=== PATIENT | female | born 1970 | race Caucasian/White ===

== ENCOUNTER → 2023-02-16 | Outpatient (CLI) | payer OTHER, SELFPAY ==
--- NOTE | 2023-02-16 17:34 | CT_ITS ---
EXAM: CT ABDOMEN AND PELVIS WITHOUT INTRAVENOUS CONTRAST CLINICAL INDICATION: Calculus of kidney, abdominal pain TECHNIQUE: Helically acquired images were obtained of the abdomen and pelvis without intravenous contrast. This CT exam was performed using one or more of the following dose reduction techniques: automated exposure control, adjustment of the mA and/or kV according to patient size, and/or use of iterative reconstruction technique. COMPARISON: No relevant prior studies available. FINDINGS: LOWER THORAX: No significant abnormality. Lung bases are clear. No cardiomegaly. No significant pericardial effusion. ABDOMEN: LIVER: No significant abnormality. Homogeneous. GALLBLADDER AND BILE DUCTS: No significant abnormality. No calcified gallstones. No gallbladder distention or wall edema. No intra- or extrahepatic biliary ductal dilation. PANCREAS: No significant abnormality. No focal cystic mass. SPLEEN: No significant abnormality. Normal size without focal cystic or solid mass. ADRENALS: No significant abnormality. No nodules. KIDNEYS AND URETERS: Mild to moderate left-sided hydroureteronephrosis due to a 3 mm left distal ureteral stone. Normal renal size and position. No right-sided urolithiasis or hydronephrosis. STOMACH AND BOWEL: No significant abnormality. No stomach or bowel distention. No focal inflammatory change. PELVIS: APPENDIX: No evidence of acute appendicitis. BLADDER: No significant abnormality. REPRODUCTIVE: An IUD is present. ABDOMEN and PELVIS: INTRAPERITONEAL SPACE: No significant abnormality. No ascites or other fluid collection. No free air. BONES/JOINTS: Guys left curvature of the lumbar spine with associated degenerative changes. No suspicious lytic or blastic abnormality. SOFT TISSUES: No significant abnormality. No discrete abdominal or pelvic wall hernia. VASCULATURE: Atherosclerosis of the aorta and its branch vessels. Abdominal aorta is non-dilated. LYMPH NODES: No significant abnormality. No enlarged lymph nodes. CT/Abdomen/Pelvis without Cont IMPRESSION: Mild to moderate left-sided hydroureteronephrosis due to a 3 mm left distal ureteral stone. Electronically Signed: Tristin Aguilera DO at 22:57 EDT ,
== END | disposition home or self-care (01) ==
LOC: CT 17:30
PROVIDERS: PCP General Practice; Referring Provider Urology; Visit Provider Urology
DX: N20.0 Calculus of kidney (principal); R10.9 Unspecified abdominal pain
CPT/HCPCS: 74176

== ENCOUNTER 2023-03-08 10:57 | Day surgery (SDC) | payer OTHER, SELFPAY ==
[2023-03-08 11:25] LABS: Internal QC Validated? YES +Cl - CLEAR BKGD; Pregnancy, Urine Negative Negative; Record Kit Lot#,Urine Preg 667200
[2023-03-08 11:33] VITALS: BP 107/72; PULSE 85; RESP 18; TEMP 37.1; O2SAT 99; BMI 26.6
[2023-03-08] MEDS: Lactated Ringers 1,000 ML 15 ML IV (11:40)
[2023-03-08 12:00] LABS: Bedside Glucose 218 mg/dL (74-106)
--- NOTE | 2023-03-08 12:25 | CALC_PTH ---
PATIENT: ROOSEVELT WASHINGTON LOC: [facility] [place] U#:[id number] AGE/SX: 52/F ROOM: RE03/08/[address]: Dr. Ary Castro MD : 1970 BED: DIS: 03/08/2023 SPEC #: [id number] RECD: 03/08/23 16:21 STATUS: DHAVAL LUJAN #: [id number] JORDAN: 03/08/23 12:[address]: Ary Castro DEPT: SURGICAL PATHOLOGY RECD BY: Agustin Bonilla ENTERED: 03/09/23 07:30 SP TYPE: Calculi OTHR DR: Dr. Kimberly Joyce MD Tissues: CALCULI Procedures: Surgery Specimen Level I HEADER OPERATION: Cysto, ureteroscopy, laser lithotripsy, left-sided stent placement PRE-OP DIAGNOSIS: Left ureteral stone TISSUE SUBMITTED: Left ureteral stone GROSS DIAGNOSIS A fragment of stone, clinically left ureteral stone (gross only). MARY:dennis 03/12/2023 COMMENT The calculus is submitted in its entirety for chemical stone analysis. The results from this study will be reported separately. GROSS DESCRIPTION Received without fixative labeled with the patient's name and designated left ureteral stone fragment. The specimen consists of a fragment of beckford-brown stone measuring 0.2 x 0.2 x 0.1 cm. The entire specimen is submitted for stone analysis. / MARY:dennis 03/09/2023 CPT: 59258
--- NOTE | 2023-03-08 14:00 | HP.PCM_ITS ---
[facility] - General General Date of Service: 03/08/23 Chief Complaint: Left ureteral stone HPI Narrative ROOSEVELT WASHINGTON, is a 52 F who presents for surgical intervention for a left ureteral calculus that has not passed. Informed consent has been obtained. [facility] Medical History (Updated 03/08/23 @ 14:[address] Ary Castro MD) Anxiety Asthma Diabetes Dietary restriction High cholesterol History of ganglion cyst Kidney stones Migraine headache Non-smoker Ureteral calculus Home Medications albuterol sulfate 2.5 mg/3 mL (0.083 %) solution for nebulization 2.5 mg inhalation Q8H PRN shortness of breath or wheezing 03/07/23 [History Last Taken 03/08/23] atorvastatin 20 mg tablet 20 mg PO QHS 03/07/23 [History Last Taken Unknown] beclomethasone dipropionate 80 mcg/actuation HFA breath activated aerosol (Qvar RediHaler) 2 inh inhalation BID 03/07/23 [History Last Taken Unknown] cephalexin 500 mg capsule 500 mg PO TID 03/07/23 [History Last Taken Unknown] fluticasone propionate 50 mcg/actuation nasal spray,suspension (Allergy Relief (fluticasone)) 1 spray intranasal DAILY PRN allergy symptoms 03/07/23 [History Last Taken Unknown] galcanezumab-gnlm 120 mg/mL subcutaneous pen injector (Emgality Pen) 120 mg subcut QMONTH 03/07/23 [History Last Taken Unknown] levocetirizine 5 mg tablet 5 mg PO DAILY 03/07/23 [History Last Taken Unknown] loperamide 2 mg capsule (Anti-Diarrheal (loperamide)) 1 mg PO Q6H PRN loose stool 03/07/23 [History Last Taken Unknown] metformin 500 mg tablet,extended release 24 hr 1,000 mg PO BID 03/07/23 [History Last Taken Unknown] oxycodone-acetaminophen 5 mg-325 mg tablet 1 tab PO Q8H PRN pain 03/07/23 [History Last Taken Unknown] potassium citrate 10 mEq (1,080 mg) tablet,extended release 10 meq PO BID 03/07/23 [History Last Taken Unknown] tamsulosin 0.4 mg capsule 0.4 mg PO DAILY 03/07/23 [History Last Taken Unknown] venlafaxine 150 mg capsule,extended release 24 hr 150 mg PO DAILY 03/07/23 [History Last Taken Unknown] Allergy/AdvReac Type Severity Reaction Status Date / Time Fish Containing Products Allergy Severe Vomiting Verified 03/07/23 09:47 meperidine [From Demerol] AdvReac Severe Vomiting Verified 03/07/23 09:46 Surgical History (Updated 03/07/23 @ 10:06 by Jennifer Caicedo) History of cystoscopy History of reduction surgery of left breast Hx of foot surgery Social History Smoking Status: Never smoker ROS ROS Narrative she reports recently having some pain on both sides. we discussed retrograde pyelograms for evaluation bilaterally. Constitutional Constitutional: Denies chills, fever(s), poor appetite or weakness Eyes Eyes: Reports systems reviewed and no addt'l complaints, except as documented ENT HEENT: Reports systems reviewed and no addt'l complaints, except as documented Cardiovascular Cardiovascular: Reports systems reviewed and no addt'l complaints, except as documented and abdominal pain; Denies chest pain, diaphoresis or dyspnea Respiratory/Chest Respiratory/Chest: Denies chest congestion, cough or dyspnea Gastrointestinal Gastrointestinal: Reports abdominal pain and nausea Genitourinary Genitourinary: Reports flank pain and nocturia; Denies burning urination or dysuria Musculoskeletal Musculoskeletal: Reports back pain Integumentary Integumentary: Reports systems reviewed and no addt'l complaints, except as documented Neurologic Neurologic: Reports systems reviewed and no addt'l complaints, except as documented Psychiatric Psychiatric: Reports systems reviewed and no addt'l complaints, except as documented Endocrine Endocrinology: Reports systems reviewed and no addt'l complaints, except as documented Hematologic/Lymphatic Hematologic/Lymphatic: Reports systems reviewed and no addt'l complaints, except as documented Allergic/Immunologic Allergic/Immunologic: Reports systems reviewed and no addt'l complaints, except as documented Vital Signs Vital Signs Vital Signs: 03/08/23 11:33 03/08/23 11:33 Temperature 98.8 F Temperature Source Temporal Pulse Rate 85 Respiratory Rate 18 Respiratory Pattern Normal Blood Pressure 107/72 Blood Pressure Mean 83 Blood Pressure Source Monitor Blood Pressure Position Semi-Fowlers Blood Pressure Location Right Arm Pulse Ox 99 Oxygen Delivery Method Room Air Weight Weight: 66.134 kg Body Mass Index (BMI) 26.6 Physical Exam Const alert, oriented x3 and no apparent distress General Appearance: cooperative, well kempt and well developed HEENT normocephalic and head/scalp atraumatic Eyes General Eye: normal appearance of both eyes Neck supple General: normal visual inspection and trachea midline Lymph Lymphatic: no lymphedema noted Chest inspection of chest normal Chest: symmetrical chest wall rise Resp normal respiratory effort, normal air movement and no retractions Cardio regular rate and regular rhythm GI soft to palpation, non-tender and non-distended Bladder / Kidney Exam: CVA tenderness left Back/Spine General Back: CVA tenderness left Extremity normal to inspection Skin no rashes or lesions noted, no wounds, skin turgor normal, no jaundice, no petechiae and no mottling Neuro oriented x3, CN's II-XII intact bilaterally and moves all extremities Psych mental status grossly normal, thought process normal and cooperative Results Lab / Micro Data Labs: Laboratory Results - last 24 hr 03/08/23 11:10: Urine Test Negative 03/08/23 11:38: POC Glucose 218 H Assessment & Plan Assessment/Plan (1) Ureteral calculus: PLAN: Plan cystoscopy with bilateral retrograde pyelograms, left ureteroscopy with possible laser lithotripsy, stone basket extraction and left ureteral stent insertion. Informed consent was obtained with discussion risks of anesthesia, bleeding, infection and injury. She understands and agrees to proceed.
[2023-03-08] MEDS: Cefazolin 2 GM in 0.9% Normal Saline (100mL Bag) 100 ML IV (14:18)
--- NOTE | 2023-03-08 15:01 | DCINST_ITS ---
Discharge Instructions Diet Discharge Diet: No restrictions Activity Discharge Activity: Return to Normal Activity Dressing / Incision Call your doctor if you observe: Fever of 101 or Higher, Inability to urinate and Inability to have a bowel movement Follow Up Care Please Follow Up With: Ary Castro MD When: The office will call to make arrangements for cystoscopy and stent removal next week Test Results: Test results from this visit will be discussed in further detail at your follow- up appointment, if applicable. Discharge Plan Admission Attending Provider: Ary Castro Primary Care Provider: Kimberly Joyce Discharge Orders/Prescriptions Prescriptions: New oxycodone-acetaminophen [Percocet] 5-325 mg tablet 1 tab PO Q8H PRN (Reason: pain) 3 Days Qty: 10 0RF Continued metformin 500 mg tablet extended release 24 hr 1,000 mg PO BID atorvastatin 20 mg tablet 20 mg PO QHS venlafaxine 150 mg capsule,extended release 24hr 150 mg PO DAILY levocetirizine 5 mg tablet 5 mg PO DAILY Qvar RediHaler 80 mcg/actuation HFA aerosol breath activated 2 inh INHALATION BID Emgality Pen 120 mg/mL pen injector 120 mg SUBCUT QMONTH fluticasone propionate [Allergy Relief (fluticasone)] 50 mcg/actuation spray,suspension 1 spray intranasal DAILY PRN (Reason: allergy symptoms) Rx Instructions: administer into each nostril tamsulosin 0.4 mg capsule 0.4 mg PO DAILY Patient Comments: TAKE 1 CAPSULE BY MOUTH DAILY FOR 14 DAYS oxycodone-acetaminophen 5-325 mg tablet 1 tab PO Q8H PRN (Reason: pain) Patient Comments: TAKE 1 TABLET BY MOUTH EVERY 8 HOURS NEEDED loperamide [Anti-Diarrheal (loperamide)] 2 mg capsule 1 mg PO Q6H PRN (Reason: loose stool) cephalexin 500 mg capsule 500 mg PO TID albuterol sulfate 2.5 mg /3 mL (0.083 %) solution for nebulization 2.5 mg inhalation Q8H PRN (Reason: shortness of breath or wheezing) Patient Comments: USE 1 UNIT DOSE EVERY 4-6 HOURS NEEDED potassium citrate 10 mEq (1,080 mg) tablet extended release 10 meq PO BID Patient Comments: TAKE 2 TABLETS BY MOUTH THREE TIMES DAILY Referrals / Follow Up: Kimberly Joyce MD [Primary Care Provider] - Disposition Disposition (needs filled in before D/C Order can be placed): Home, Self Care
[2023-03-08 15:03] VITALS: BP 107/72; BP 119/73; PULSE 72; RESP 16; TEMP 36.4; O2SAT 97
--- NOTE | 2023-03-08 15:03 | PCM.OPRPT ---
Problems Associated Problem List Diagnoses (1) Ureteral calculus: Report of Operation Date of Procedure: 03/08/23 Pre-Operative Diagnosis: Left ureteral calculus, bilateral flank pain Post-Operative Diagnosis: Same Surgery/Procedure Performed:: Cystoscopy, bilateral retrograde pyelograms, left ureteroscopy, holmium laser lithotripsy, stone basket extraction, left ureteral stent insertion Surgeon: Ary Castro Type of Anesthesia: General Specimen's removed: Left ureteral calculus Description of Procedure: Patient is a 52-year-old female here with a left distal ureteral calculus for surgical intervention, informed consent was obtained. The patient was taken to the operating room and placed on the operating room table. Anesthesia monitored the head, neck, airway, IV access and vital signs throughout the case. Once anesthesia was abruptly ministered the patient was placed into dorsolithotomy position was prepped and draped in usual sterile fashion. The cystoscope was inserted through the urethra under direct visualization into the urinary bladder. The urethral and bladder mucosa were visualized in their entirety without any evidence of abnormality. The right ureteral orifice was identified and gently cannulated with an 8 Kittitian cone-tip catheter and contrast was injected in retrograde fashion under fluoroscopic visualization. There were no filling defects or abnormalities identified including any evidence of hydroureteronephrosis. At this time attention was turned towards the left side where a retrograde pyelogram once again was performed and obstruction was met in the distal third of the ureter. At this point and 0.035 Glidewire was passed through the left ureteral orifice into the renal pelvis with obvious palpation of the stone in the distal ureter. The semirigid ureteroscope was placed alongside the wire and the stone was identified. It was broken into multiple small pieces that were removed using a basket. Using the indwelling safety wire, a 4.5 Kittitian 24 cm JJ stent was inserted with good positioning in the renal pelvis as well as the urinary bladder. At this time the patient's bladder was emptied and the case was terminated. Stone fragments were sent for evaluation. The patient was awakened and taken to the recovery room in good condition. There were no complications during this procedure. Grafts/Implants Used: 4.5 Kittitian by 24 cm JJ stent Complications None Admit VTE Documentation VTE Present on Admission: Yes VTE Mechan Device Prophylaxis: SCD's VTE Pharm Prophylaxis ordered?: No Reason prophylaxis not ordered:: Treatment Not Indicated
[2023-03-08 15:15] VITALS: BP 107/72; BP 113/70; PULSE 71; RESP 16; O2SAT 96
[2023-03-08 15:31] VITALS: BP 107/72; BP 115/72; PULSE 66; RESP 16; O2SAT 97
[2023-03-08 15:35] VITALS: BP 107/72; BP 117/75; PULSE 65; RESP 16; TEMP 36.6; O2SAT 96
[2023-03-08 15:47] LABS: Bedside Glucose 183 mg/dL (74-106)
[2023-03-08 15:55] VITALS: BP 107/72; BP 117/77; PULSE 87; RESP 16; TEMP 36.7; O2SAT 98
[2023-03-21 14:47] LABS: Source LEFT URETER
[2023-03-21 14:48] LABS: Size 3x3 mm
== END 2023-03-08 16:13 | disposition home or self-care (01) ==
LOC: SDC 11:02 → AC 11:03
PROVIDERS: Anesthesiology; PCP General Practice; Referring Provider Urology; Visit Provider Urology
PROC: 0TJ98ZZ Inspection of Ureter, Via Natural or Artificial Opening Endoscopic (ICD-10-PCS; CPT 52352; principal; 2023-03-08 12:15)
DX: N20.2 Calculus of kidney with calculus of ureter (principal); E11.9 Type 2 diabetes mellitus without complications; E78.00 Pure hypercholesterolemia, unspecified; J45.909 Unspecified asthma, uncomplicated; F41.9 Anxiety disorder, unspecified; Z79.899 Other long term (current) drug therapy; Z79.84 Long term (current) use of oral hypoglycemic drugs
CPT/HCPCS: 52356; 00873; 76000; 81025; 82360; 82962; 88300; J7120; J2405

== ENCOUNTER → 2023-11-07 | Outpatient (CLI) | payer OTHER, SELFPAY ==
--- NOTE | 2023-11-07 16:11 | CT_ITS ---
STUDY: CT ABDOMEN AND PELVIS WITHOUT CONTRAST REASON FOR EXAM: Female, 52 years old. R FLANK PAIN HX STONES RADIATION DOSAGE (If Supplied By Facility): CTDIvol = ( 7.23 ) mGy, DLP = ( 346.76 ) mGycm TECHNIQUE: Transaxial images were obtained from the dome of the diaphragm to the symphysis pubis without oral contrast, and without intravenous contrast. Sagittal and coronal images were reconstructed. Individualized dose optimization techniques were used for this CT. COMPARISON: None. FINDINGS: The visualized lung bases are unremarkable. The visualized portions of the heart are within normal limits. Normal liver. Normal gallbladder and extrahepatic biliary system. Normal spleen. Normal pancreas. Normal bilateral adrenal glands. 2 mm stone in the right kidney. 2 mm stone in the left kidney. Normal visualized stomach. Normal small intestine. Fecal retention in the colon. The appendix is visualized and appears normal. Normal abdominal aorta. Normal inferior vena cava. Normal retroperitoneum. Normal urinary bladder. IUD in the uterus. Normal abdominal wall. Normal osseous structures. CT/Abdomen/Pelvis without Cont IMPRESSION: Bilateral nonobstructive renal calculi. Colonic fecal retention. Electronically Signed: Terry Barba DO at 17:27 EDT Reading Location ID and State: [facility] / [place] Tel [phone], Service support ,
== END | disposition home or self-care (01) ==
PROVIDERS: PCP General Practice; Referring Provider Urology; Visit Provider Urology
DX: R10.9 Unspecified abdominal pain (principal); Z87.442 Personal history of urinary calculi
CPT/HCPCS: 74176